=== PATIENT | female | born 1990 | race African-American/Black ===

== ENCOUNTER 2017-06-19 12:09 | Emergency (ER) | payer SELFPAY ==
[~2017-06-19] VITALS: Ht 162.6 cm; Wt 82.0 kg
[2017-06-19 12:30] VITALS: BP 121/78
== END 2017-06-19 17:19 | disposition home or self-care (01) ==
LOC: ER 14:23
DX: R05 Cough (principal)
CPT/HCPCS: 71045; 81025; 99283